=== PATIENT | female | born 1985 | race Caucasian/White ===

== ENCOUNTER 2025-06-13 17:07 | Emergency (ER) | payer OTHER, SELFPAY ==
--- NOTE | ~2025-06-13 | XR_ITS ---
CLINICAL HISTORY: chest congestion sob 2 view chest x-ray Comparison: None provided Findings: No consolidation or effusion. Normal size heart. No acute fracture. IMPRESSION: 1. No acute findings. This document has been electronically signed by: Jennifer Randolph MD on 06/13/2025 17:47:10
[2025-06-13 17:13] VITALS: BP 173/78; PULSE 75; RESP 18; TEMP 36.6; O2SAT 97; BMI 38.0
--- NOTE | 2025-06-13 17:13 | ED_ITS ---
HPI - General Adult General Chief complaint: Chest Pain Stated complaint: bronchitis, sob, sent fom pcp Time Seen by Provider: 06/13/25 23:52 History of Present Illness ED Provider: Juan Luis Catherine MD HPI narrative: Presented to the the at the request of the PCP for cough. The patient tells me that about 5 days ago she was seen in urgent care for mild cough slight intermittent heaviness of the chest she said based on her x-ray there they diagnosed with a bronchitis put on prednisone for 5 days she is not sure of the dose no inhaler was given she has no asthma or smoking history. She feels like that somewhat improved but she called her PCP's office stating she felt slight heaviness with breathing. No hemoptysis no objective leg swelling calf pain history of DVT or PE. No pleuritic pain Related Data Allergies Allergy/AdvReac Type Severity Reaction Status Date / Time No Known Allergies Allergy Verified 06/13/25 17:15 [facility] Social History Social History Smoked in Last 30 Days: No Use of substances other than those prescribed or required for medical reasons: Yes Substance Use Type: Marijuana Advance Directives: No Advance Directives Information Provided: Yes Do you have a plan to hurt others: No Plan Patient : No Physical Exam ED Exam Exam: EXAM: Gen: Alert, awake, well appearing, well hydrated. Head: Atraumatic Eyes: Anicteric, Normal conjunctiva. ENT: Moist mucosa, no pallor. ? Neck: Supple. Skin: ?No observable rash or bruising on exposed or examined skin Respiratory: Breathing comfortably, No distress.Clear to auscultation bilaterally, symmetric chest expansion, No wheeze, rales, ronchi. Patient ambulated proximally 100 ft with no tachycardia or hypoxia or wheeze/dyspnea Cardiovascular: Regular rate and rhythm. No murmurs or rub. Well perfused periphery, warm extremities. No edema. ? Abdominal: No focal tenderness. Soft, no objective distension. No palpable masses or obvious organomegaly. ?No guarding, no rebound tenderness or other peritoneal findings. : No flank tenderness. Neuro: Alert. Gross movement of all extremities intact. ? Psych: Calm. Cooperative. MSK: No grossly visible deformity. Vital signs: See flowsheet Vital Signs: Vital Signs - 24 hr 06/13/25 17:13 06/13/25 23:25 06/14/25 00:35 Temperature 98 F 0 F L Pulse Rate 75 68 68 Respiratory Rate 18 18 18 Blood Pressure 173/78 H 152/87 H 152/87 H Pulse Oximetry 97 100 100 Oxygen Delivery Method Room Air Room Air Room Air BMI result Body Mass Index 38.0 Course Course Course Narrative: This is a Rapid Medical Examination (RME) performed by Callum Hernandez PA-C in triage. Full HPI, ROS, assessment and treatment plan per primary provider in the Main ED. Hx: 39 yo F here for eval of chest congestion and SOB at rest x1 week. seen at last week, diagnosed w/ bronchitis, has since completed course of prednisone without improvement. called PCP today, advised to come to ED. reports chest feels heavy. Plan: labs, ekg, cxr, viral swabs Medical Decision Making Medical Decision Making MDM Narrative: Medical Decision Makin-year-old female with mild subjective heaviness of the chest. No exertional pain or pleuritic pain. No tachycardia hypoxia respiratory distress or any objective abnormal lung exam findings. Chest x-ray is clear without infiltrates there was no wide mediastinum or cardiomegaly or pleural effusions. ECG is without ischemia or RV strain. The patient has no clinical signs of DVT I doubt PE though she is on IUD with Mirena. Preliminary Favored Differential Diagnosis: Bronchitis, the bougie, anxiety, pleural effusion, pneumothorax, pleuritis among additional considered etiologies Testing Interpreted Independently: ECG sinus rhythm no ischemic changes no RV strain Radiology or Lab testing Results Reviewed: Not Applicable Consults: Not Applicable Independent Historians/External Chart Reviews: Not Applicable Social Determinants of Health Impacting MDM/Planning: Not Applicable Lab Data 06/13/25 17:30 06/13/25 17:30 Labs: Lab Results 06/13/25 06/13/25 Range/Units 17:30 23:28 WBC 11.9 H (4.8-10.8) X10*3/uL RBC 4.19 L (4.20-5.50) X10*6/uL Hgb 13.2 (12.0-16.0) g/dl Hct 36.9 L (37.0-47.0) % MCV 88.1 (80.0-98.0) fL MCH 31.5 (27.0-33.0) pg MCHC 35.8 H (31.0-35.0) g/dl RDW 12.5 (11.0-16.0) % Plt Count 369 (160-400) X10*3/uL MPV 9.8 (9.4-12.3) fL Immature Gran % (Auto) 0.4 (0.0-0.4) % Neut % (Auto) 68.3 (45-73) % Lymph % (Auto) 25.6 (20-40) % [place] % (Auto) 5.5 (2-11) % Eos % (Auto) 0.1 (0-4) % Baso % (Auto) 0.1 (0-2) % Lymph # (Auto) 3.1 (1.2-4.9) X10*3/uL [place] # (Auto) 0.7 (0.1-1.2) X10*3/uL Eos # (Auto) 0.0 (0.0-0.4) X10*3/uL Baso # (Auto) 0.0 (0.0-0.2) X10*3/uL Abs Immat Gran (auto) 0.05 H (0.00-0.03) X10*3/uL Absolute Neuts (auto) 8.1 (2.0-8.3) x10*3/uL Absolute Nucleated RBC 0.000 (0.0-0.012) X10*3/uL Nucleated RBC % (auto) 0.0 (0.0-0.2) /100WBC Sodium 141 (135-145) mmol/L Potassium 3.9 (3.3-5.1) mmol/L Chloride 105 (96-108) mmol/L Carbon Dioxide 27 (22-29) mmol/L Anion Gap 13 (12-20) BUN 9 (9-16) mg/dL Creatinine 0.58 (0.5-1.4) mg/dL Estim Creat Clear Calc 168.6 Estimated GFR > 60 Random Glucose 107 (60-115) mg/dL Calcium 9.0 (8.4-10.2) mg/dL Magnesium 1.9 (1.6-2.6) mg/dL Total Bilirubin 0.4 (0.0-1.0) mg/dL AST 21 (5-31) U/L ALT 27 (0-31) U/L Alkaline Phosphatase 60 (39-117) U/L Troponin I High Sens < 2.7 < 2.7 (<3.5-17.0) ng/L Total Protein 7.3 (6.5-8.0) g/dL Albumin 4.4 (3.5-5.0) g/dL Influenza Type A (PCR) NEGATIVE (Negative) Influenza Type B (PCR) NEGATIVE (Negative) RSV RNA Qual (PCR) NEGATIVE (Negative) SARS-CoV-2 RNA (RT-PCR) NEGATIVE (Negative) Discharge Plan Discharge Clinical Impression: Cough Patient Disposition: Home, Self-Care Instructions: Cold Symptoms (ED) Additional Instructions: _ DISCHARGE DIAGNOSES: Cough probably upper respiratory infection HISTORY OF PRESENTATION: ?Cough EMERGENCY DEPARTMENT COURSE,TESTS, TREATMENTS: While in the ED today you had a reassuring workup with lab work including blood chemistries, blood counts as well as EKG and chest x-ray that were normal DISCHARGE MEDICATIONS: ?[We have made no changes to your regular medication regimen] FOLLOW-UP: ?Call your primary or general physician soon as possible to discuss your symptoms, your ED visit and to discuss follow up plans Call your primary doctor follow up. You may need outpatient testing including nonemergent echocardiography or Holter monitor or stress testing INSTRUCTIONS ?& RETURN PRECAUTIONS: If any symptoms change first call your primary physician, if it is after-hours your primary doctors office should have a provider [place] aide you can speak with. If the symptoms are severe or very concerning to you then call 911 or return to the ED. Juan Luis Catherine MD Emergency Physician [facility] Interventions: ED Discharge Assessment Last Done: 06/14/25 00:35 Discharge Date/Time: 06/14/25 00:36 Print Language: Romanian
--- NOTE | 2025-06-13 17:15 | ECG_ITS ---
Test Reason : CHEST PAIN Blood Pressure : */* mmHG Vent. Rate : 70 BPM Atrial Rate : 70 BPM P-R Int : 128 ms QRS Dur : 76 ms QT Int : 390 ms P-R-T Axes : 40 18 20 degrees QTcB Int : 421 ms Normal sinus rhythm Normal ECG No previous ECGs available Referred By: Yazmin Hernandez Electronically Signed By: JEREMIAH YBARRA
[2025-06-13 17:36] LABS: MANUAL DIFF FLAG NO
[2025-06-13 17:40] LABS: Hematocrit 36.9 % (37.0-47.0); Hemoglobin 13.2 g/dl (12.0-16.0); Imm Gran Abs Auto 0.05 X10*3/uL (0.00-0.03); Imm Gran Pct Auto 0.4 % (0.0-0.4); Lymphocytes Absolute Auto 3.1 X10*3/uL (1.2-4.9); Mean Corpuscular HGB Conc 35.8 g/dl (31.0-35.0); Mean Corpuscular Hemoglobin 31.5 pg (27.0-33.0); Mean Corpuscular Volume 88.1 fL (80.0-98.0); NRBC Abs Auto 0.000 X10*3/uL (0.0-0.012); NRBC Pct Auto 0.0 /100WBC (0.0-0.2); Platelet Count 369 X10*3/uL (160-400); Red Blood Count 4.19 X10*6/uL (4.20-5.50); White Blood Count 11.9 X10*3/uL (4.8-10.8)
[2025-06-13 17:57] LABS: Alanine Aminotransferase 27 U/L (0-31); Albumin Level 4.4 g/dL (3.5-5.0); Alkaline Phosphatase 60 U/L (39-117); Anion Gap 13 (12-20); Aspartate Amino Transferase 21 U/L (5-31); Blood Urea Nitrogen 9 mg/dL (9-16); Calcium 9.0 mg/dL (8.4-10.2); Carbon Dioxide 27 mmol/L (22-29); Chloride 105 mmol/L (96-108); Creatinine Clr Calc Pharmacy 168.6; Estimated Glomerular Filt Rate > 60; Magnesium 1.9 mg/dL (1.6-2.6); Potassium 3.9 mmol/L (3.3-5.1); Sodium 141 mmol/L (135-145); Total Protein 7.3 g/dL (6.5-8.0)
[2025-06-13 18:12] LABS: Troponin-I High Sensitivity < 2.7 ng/L (<3.5-17.0)
[2025-06-13 18:14] LABS: Resp Syncy Virus RNA Qual PCR NEGATIVE (Negative); SARS COV2 PCR INHOUSE NEGATIVE (Negative)
[2025-06-13 23:25] VITALS: BP 152/87; PULSE 68; RESP 18; O2SAT 100
[2025-06-14 00:10] LABS: Troponin-I High Sensitivity < 2.7 ng/L (<3.5-17.0)
[2025-06-14 00:35] VITALS: BP 152/87; PULSE 68; RESP 18; TEMP -17.7; TEMP 0; O2SAT 100
== END 2025-06-14 00:36 | disposition home or self-care (01) ==
PROVIDERS: Physician Assistant Medical; Emergency Provider Emergency Medicine; PCP Internal Medicine
DX: R05.9 Cough, unspecified (principal)
CPT/HCPCS: 36415; 71046; 80053; 83735; 84484; 85025; 87637; 93005; 99283; 99284

== ENCOUNTER → 2025-06-13 17:15 | Outpatient (BNV) | payer OTHER, SELFPAY | PROVIDERS: PCP Internal Medicine; Visit Provider Radiology Diagnostic Radiology | DX: R06.02 Shortness of breath (principal) | CPT/HCPCS: 71046 ==

== ENCOUNTER → 2025-06-13 17:15 | Outpatient (BNV) | payer OTHER, SELFPAY | PROVIDERS: Emergency Provider Emergency Medicine; PCP Internal Medicine; Visit Provider Internal Medicine | DX: R07.9 Chest pain, unspecified (principal) | CPT/HCPCS: 93010 ==